=== PATIENT | male | born 1965 | race Caucasian/White ===

== ENCOUNTER 2020-03-19 04:21 | Inpatient (IN) | payer OTHER ==
[2020-03-15 14:13] VITALS: BMI 27.9
[~2020-03-19 04:21] MED LIST: VANCOMYCIN 1,000 MG VIAL (RESTRICTED TO ID ONLY) IVPB ONE; ceFAZolin SODIUM 1 GM VIAL IVPB ONE
[2020-03-19] MEDS ORDERED: LIDOCAINE HCL/PF 2% SDV 5ML VIAL ONE ×3 (12:41→16:17)
[2020-03-19] MEDS ORDERED: PROPOFOL 20 ML ONE ×21 (12:41→19:00)
[2020-03-19] MEDS ORDERED: SUCCINYLCHOLINE CHLORIDE 200 MG/10 ML SYRINGE ONE (12:41)
[2020-03-19] MEDS ORDERED: MIDAZOLAM HCL 2 MG/2 ML SINGLE DOSE VIAL ONE (12:42)
[2020-03-19] MEDS ORDERED: HEPARIN NA (PORCINE) 5,000 UNITS/ML 1ML VIAL ONE (12:52)
[2020-03-19] MEDS ORDERED: BUPIVACAINE HCL/PF 0.25% (2.5MG/ML) 10 ML VIAL ONE (13:35)
[2020-03-19] MEDS ORDERED: BUPIVACAINE LIPOSOME/PF (EXPAREL) 266 MG/20 ML VIAL ONE (13:35)
[2020-03-19] MEDS ORDERED: THROMBIN (BOVINE) 5,000 UNIT VIAL TP ONE ×2 (13:36→13:37)
[2020-03-19] MEDS ORDERED: ONDANSETRON 4 MG/2 ML VIAL ONE (14:11)
[2020-03-19] MEDS ORDERED: TRANEXAMIC ACID 1000 MG/10 ML VIAL ONE ×2 (14:11→16:14)
[2020-03-19] MEDS ORDERED: DEXAMETHASONE SOD PHOSPHATE 4 MG/1 ML VIAL ONE (14:11)
[2020-03-19] MEDS ORDERED: VANCOMYCIN 1,000 MG VIAL (RESTRICTED TO ID ONLY) ONE (14:13)
[2020-03-19] MEDS ORDERED: ceFAZolin SODIUM 1 GM VIAL ONE ×2 (14:13→16:04)
[2020-03-19] MEDS ORDERED: ceFAZolin SODIUM 1 GM VIAL IVPB ONE ×2 (14:45→18:00)
[2020-03-19] MEDS ORDERED: VANCOMYCIN 1,000 MG VIAL (RESTRICTED TO ID ONLY) IVPB ONE (15:00)
[2020-03-19] MEDS ORDERED: ROCURONIUM BROMIDE 50 MG/5 ML SYRINGE ONE ×2 (15:12→18:44)
[2020-03-19] MEDS ORDERED: HYDROmorphone HCl 2 MG/ML VIAL ONE (17:01)
--- NOTE | 2020-03-19 18:18 | PN ---
Progress Note (short form) - Note Progress Note: 54M s/p L3-S1 laminectomies, L3-L4 PLIF, L4-L5 PLIF, & L5-S1 PLIF, L3-S1 posterior instrumented spinal fusion POD #0. -Admit to ICU post-op. -Pain control: NO NSAID's; patient received intra-op paraspinal muscle block w/Exparel & marcaine; OK to use ICT SALES ASSISTANT if needed; transition to oral analgesia post-op. -DVT PPx: -Mechanical only: GARCIA's, SCD's. -Chemical: None. -Incentive spirometry q15 min. -NPO until flatus. -Lea care; d/c when ambulating. -Ancef post-op x 3 doses. -PT/OT/Rehab, OOB. -WBAT B/L LE. -No bending, lifting (>5 lbs), or twisting for 9-12 months. -Care per ICU & medical hospitalist teams. -Discharge planning: [facility] preferred if pt. needs rehab; f/u 7-10 days after rehab (or hospital) discharge at [facility] office; call for appointment; . -Will follow. Phil Hand MD (Orthopaedic Surgery).
--- NOTE | 2020-03-19 18:25 | OP ---
Operative Note - Note: Operative Date: 03/19/20 Pre-Operative Diagnosis: L3-L4, L4-L5, L5-S1 intervertebral disc disorders with associated radiculopathy. L3-S1 spinal stenosis with associated neurogenic claudication. L3-S1 axial instability with associated myofascial pain complex and lumbosacral enthesopathy. Operation: 1. L3 laminectomy & inferior facetectomy. 2. L4 laminectomy & superior and inferior facetectomies. 3. L5 laminectomy & superior and inferior facetectomies. 4. S1 laminectomy & superior facetectomy. 5. L3-L4 discectomy, PLIF, and posterolateral arthrodesis. 6. L4-L5 discectomy, PLIF, and posterolateral arthrodesis. 7. L5-S1 discectomy, PLIF, and posterolateral arthrodesis. 8. L3-S1 posterior instrumentation. 9. Bone autograft (morselized). 10. Bone allograft (morselized). 11. Complex wound closure. 12. Fluoroscopy Findings: Severe L3-S1 spinal stenosis Severe spondylosis L3-S1 Implants: Cages: RTI Tetrafuse Fortilink. L3-L4: 13mm. L4-L5: 14mm. L5-S1: 12mm. Screws: Precision Reform. L3-S1 bilaterally 6.5x40mm Post-Operative Diagnosis: Same as Pre-op Surgeon: Phil Hand Youth Accommodation Support Worker: Seamus Hand Anesthesiologist/TAXONOMY TEACHER: Daryl Zamorano Anesthesia: General, Local Specimens Removed: L3-L4, L4-L5, L5-S1 discs Estimated Blood Loss (mls): 1,000 Drains & Tubes with Location: 1 x superficial HemoVac Blood Volume Replaced (mls): 500 (Cell Saver) Fluid Volume Replaced (mls): 2,800 (Crystalloid) Operative Report Dictated: Yes
[2020-03-19] MEDS ORDERED: NEOSTIGMINE METHYLSULFATE 0.5 MG/1 ML - 10 ML MDV ONE ×2 (19:06→20:29)
[2020-03-19] MEDS ORDERED: ONDANSETRON 4 MG/2 ML VIAL IVPUSH PRN ×2 (20:22→21:14)
[2020-03-19] MEDS ORDERED: PHENYLEPHRINE HCL 10 MG/1 ML SINGLE DOSE VIAL ONE (20:29)
[2020-03-19] MEDS ORDERED: VASOPRESSIN 20 UNITS/ML VIAL IV ONE (20:30)
[2020-03-19] MEDS ORDERED: LACTATED RINGERS SOLUTION 1,000 ML IV SCH (20:30)
[2020-03-19] MEDS ORDERED: NALOXONE HCL 0.4 MG/ML VIAL ONE (20:54)
[2020-03-19 22:15] LABS: HEMATOCRIT 38.5 % (35.4-49); HEMOGLOBIN 13.1 GM/dL (11.7-16.9); MCH 31.8 pg (25.7-33.7); MCHC 33.9 g/dl (32.0-35.9); MEAN CELL VOLUME 93.9 fl (80-96); MEAN PLT VOLUME 7.9 fl (7.5-11.1); PLATELET COUNT 141 K/MM3 (134-434); RBC 4.11 M/mm3 (4.00-5.60); RDW 12.7 % (11.9-15.9); WHITE BLOOD COUNT 12.5 K/mm3 (4.0-10.0)
[2020-03-19 22:46] LABS: ALBUMIN 2.8 g/dl (3.4-5.0); BILIRUBIN,TOTAL 0.8 mg/dL (0.2-1); BLOOD UREA NITROGEN 15.5 mg/dL (7-18); CALCIUM 7.8 mg/dL (8.5-10.1); CREATININE 0.9 mg/dL (0.55-1.3); POTASSIUM 5.1 mmol/L (3.5-5.1)
[2020-03-19] MEDS ORDERED: ACETAMINOPHEN INJECTION 100 ML IVPB ONE (23:32)
[2020-03-19] MEDS: ACETAMINOPHEN 1000 MG/100 ML VIAL (NON FORMULARY) IVPB SCH (23:41)
[2020-03-20] MEDS ORDERED: HYDROmorphone HCl 2 MG/ML VIAL IVPB ONE (00:24)
[2020-03-20] MEDS ORDERED: HYDROmorphone HCl 2 MG/ML VIAL ONE (00:25)
[2020-03-20] MEDS: clonazePAM 2 MG TABLET PO SCH ×3 (00:45→22:01)
--- NOTE | 2020-03-20 00:51 | CONSULT ---
Consultation: REQUESTING PROVIDER: Dr. Hand CONSULT REQUEST: We have been asked to medically evaluate this patient for ICU admission HISTORY OF PRESENT ILLNESS: 54 yo male pmhx chronic lower back pain, carpal tunnel, gynecomastia, HSV-2, HLD, Ashtma, panic disorder, positional vertigo, pre diabetes, RBBB, current smokers with dyspnea on exertion. Patient presented to hospital for posterior lumbar interbody fusion by Dr. Hand. S/p L3-S1 laminectomies, L3-L4 PLIF, L4-L5 PLIF, & L5-S1 PLIF, L3-S1 posterior instrumented spinal fusion. REVIEW OF SYSTEMS: unable to assess at time patient is sedated CONSTITUTIONAL: Absent: fever, chills, diaphoresis, generalized weakness, malaise, loss of appetite, weight change HEENT: Absent: rhinorrhea, nasal congestion, throat pain, throat swelling, difficulty swallowing, mouth swelling, ear pain, eye pain, visual changes CARDIOVASCULAR: Absent: chest pain, syncope, palpitations, irregular heart rate, lightheadedness, peripheral edema RESPIRATORY: Absent: cough, shortness of breath, dyspnea with exertion, orthopnea, wheezing, stridor, hemoptysis GASTROINTESTINAL: Absent: abdominal pain, abdominal distension, nausea, vomiting, diarrhea, constipation, melena, hematochezia GENITOURINARY: Absent: dysuria, frequency, urgency, hesitancy, hematuria, flank pain, genital pain MUSCULOSKELETAL: Absent: myalgia, arthralgia, joint swelling, back pain, neck pain SKIN: Absent: rash, itching, pallor HEMATOLOGIC/IMMUNOLOGIC: Absent: easy bleeding, easy bruising, lymphadenopathy, frequent infections ENDOCRINE: Absent: unexplained weight gain, unexplained weight loss, heat intolerance, cold intolerance NEUROLOGIC: Absent: headache, focal weakness or paresthesias, dizziness, unsteady gait, seizure, mental status changes, bladder or bowel incontinence PSYCHIATRIC: Absent: anxiety, depression, suicidal or homicidal ideation, hallucinations. PHYSICAL EXAMINATION Vital Signs - 24 hr 03/19/20 03/19/20 03/19/20 09:54 21:25 21:40 Temperature 98.0 F 98.4 F Pulse Rate 54 L 68 68 Respiratory 16 10 16 Rate Blood Pressure 99/60 98/61 96/56 L O2 Sat by Pulse 98 100 100 Oximetry (%) 03/19/20 03/19/20 03/19/20 23:10 23:25 23:40 Temperature Pulse Rate 59 L 69 78 Respiratory 14 16 18 Rate Blood Pressure 101/67 142/91 138/81 O2 Sat by Pulse 100 100 100 Oximetry (%) GENERAL: sedated, on dilaudid in no acute distress. HEAD: Normal with no signs of trauma. EYES: PERRL ENT: Moist mucous membranes. NECK: supple, no JVD LUNGS: CTA BL, on BIPAP HEART: RRR, s1, s2 ABDOMEN: Soft, nontender, not distended EXTREMITIES: warm, well-perfused. No cyanosis. No clubbing. No peripheral edema. NEUROLOGICAL: Unable to fully assess SKIN: Warm, dry, no rashes or lesions noted. Laboratory Results - last 24 hr 03/19/20 03/19/20 03/19/20 09:14 20:52 22:07 WBC 12.5 H RBC 4.11 Hgb 13.1 Hct 38.5 MCV 93.9 MCH 31.8 MCHC 33.9 RDW 12.7 Plt Count 141 MPV 7.9 Sodium Potassium Chloride Carbon Dioxide Anion Gap BUN Creatinine Est GFR (CKD-EPI)AfAm Est GFR (CKD-EPI)NonAf POC Glucometer 112 Random Glucose Calcium Total Bilirubin AST ALT Alkaline Phosphatase Total Protein Albumin Blood Type O POSITIVE Antibody Screen Negative 03/19/20 22:07 WBC RBC Hgb Hct MCV MCH MCHC RDW Plt Count MPV Sodium 140 Potassium 5.1 Chloride 109 H Carbon Dioxide 26 Anion Gap 5 L BUN 15.5 Creatinine 0.9 Est GFR (CKD-EPI)AfAm 112.62 Est GFR (CKD-EPI)NonAf 97.17 POC Glucometer Random Glucose 130 H Calcium 7.8 L Total Bilirubin 0.8 AST 35 ALT 27 Alkaline Phosphatase 70 Total Protein 5.0 L Albumin 2.8 L Blood Type Antibody Screen Active Medications Generic Name Dose Route Start Last Admin Trade Name Freq PRN Reason Stop Dose Admin Acetaminophen 1,000 mg 03/20/20 02:00 03/19/20 23:41 Ofirmev Injection - IVPB 03/20/20 14:01 1,000 mg Q6H EDDY Administration Cefazolin Sodium/Dextrose 2 gm 03/20/20 00:30 Ancef 2 Gm Premixed Ivpb - IVPB 03/20/20 12:31 Q6H EDDY Clonazepam 2 mg 08/31/20 22:00 Klonopin - PO BID EDDY Fentanyl 50 mcg 03/19/20 21:14 Sublimaze Injection - IVPUSH [id number] PRN PAIN-PACU ORDER X 4 DOSES ONLY Lactated Ringer's 1,000 mls @ 125 mls/hr 03/19/20 20:30 Lactated Ringers Solution IV ASDIR EDDY Lactated Ringer's 1,000 mls @ 125 mls/hr 03/19/20 21:15 Lactated Ringers Solution IV ASDIR EDDY Ondansetron HCl 4 mg 03/19/20 20:22 Zofran Injection IVPUSH Q6H PRN NAUSEA AND/OR VOMITING Ondansetron HCl 4 mg 03/19/20 21:14 Zofran Injection IVPUSH Q6H PRN NAUSEA AND/OR VOMITING ASSESSMENT/PLAN: 54 yo male pmhx chronic lower back pain, carpal tunnel, gynecomastia, HSV-2, HLD, Ashtma, panic disorder, positional vertigo, pre diabetes, RBBB, current smokers with dyspnea on exertion. S/p L3-S1 laminectomies, L3-L4 PLIF, L4-L5 PLIF, & L5-S1 PLIF, L3-S1 posterior instrumented spinal fusion. Admitted to ICU for post op care. Neuro: - POD 0 Laminectomy - Pain control: NO NSAID's; patient received intra-op paraspinal muscle block w/Exparel & marcaine OK to use YOUTH DIRECTOR if needed; transition to oral analgesia post-op. - patient on 0.2 mg IV Dilaudid for pain now - continue to monitor with neuro checks Pulm: - current smoker - BIPAP at night post op - -Incentive spirometry q15 min Cardio: - cardiac monitoring Renal: - Lea care; d/c when ambulating. ID: - Ancef post-op x 3 doses. DVT PPx: - Mechanical only: GARCIA's, SCD's. FEN: - IVF - NPO until flatus PM&R - PT/OT/Rehab, OOB. - WBAT B/L LE. - No bending, lifting (>5 lbs), or twisting for 9-12 months. Dispo: Discharge planning: [facility] preferred if pt. needs rehab; f/u 7-10 days after rehab (or hospital) discharge at [facility] office; call for appointment; . Visit type - Emergency Visit Emergency Visit: Yes ED Registration Date: 03/19/20 Care time: The patient presented to the Emergency Department on the above date and was hospitalized for further evaluation of their emergent condition. - New Patient This patient is new to me today: Yes Date on this admission: 03/20/20 - Critical Care Critical Care patient: Yes Total Critical Care Time (in minutes): 35 Critical Care Statement: The care of this patient involved high complexity decision making to prevent further life threatening deterioration of the patient's condition and/or to evaluate & treat vital organ system(s) failure or risk of failure. ATTENDING PHYSICIAN STATEMENT I saw and evaluated the patient. I reviewed the resident's note and discussed the case with the resident. I agree with the resident's findings and plan as documented. SUBJECTIVE: OBJECTIVE: ASSESSMENT AND PLAN:
[2020-03-20] MEDS: ceFAZolin 2 GRAM PREMIX BAG IVPB SCH ×3 (01:30→14:24)
[2020-03-20] MEDS: LACTATED RINGERS SOLUTION 1,000 ML IV SCH ×2 (02:01→22:01)
[2020-03-20] MEDS: ACETAMINOPHEN 1000 MG/100 ML VIAL (NON FORMULARY) IVPB SCH ×3 (03:30→14:50)
--- NOTE | 2020-03-20 06:38 | OP ---
DATE OF OPERATION: DATE OF DICTATION: 03/19/2020 SURGEON: Phil Hand MD PRODUCTIVITY ENGINEER: Seamus Hand MD PREOPERATIVE DIAGNOSIS: Spinal stenosis L3, L4, L5 with associated segmental instability, kyphosis. POSTOPERATIVE DIAGNOSIS: Spinal stenosis L3, L4, L5 with associated segmental instability, kyphosis. OPERATION: 1. L3 bilateral laminectomies and facetectomies. (59541-35-19) 2. L4 bilateral laminectomies and facetectomies. () 3. L5 bilateral laminectomies and facetectomies. () 4. S1 bilateral laminectomies and facetectomies. () 5. L3-L4 posterior lumbar interbody fusion (PLIF) & posterior/lateral arthrodesis. (95995-50) 6. L4-L5 posterior lumbar interbody fusion (PLIF) & posterior/lateral arthrodesis. (58383-80) 7. L5-S1 posterior lumbar interbody fusion (PLIF) & posterior/lateral arthrodesis. (72283-67) 8. L3-L4 insertion biomechanical device/interbody cage. (57488) 9. L4-L5 insertion biomechanical device/interbody cage. (89624) 10. L5-S1 insertion biomechanical device/interbody cage. (22312) 11. L3-S1 bilateral posterior segmental instrumentation. (, technically challenging) 12. Deformity correction; cheondoism of lordosis. (89180) 13. Morselized bone autograft. (78337) 14. Morselized bone allograft. () 15. Bone marrow aspiration for bone grafting. (42496) 16. Complex wound closure, 4 layers, 25cm. (69055 x 4) 17. Fluoroscopy. (04354-58) ANTIBIOTICS GIVEN: Ancef 2 g, 1 g vancomycin preoperative; 1 g Ancef given intraoperatively; tranexamic acid used 1 g preoperative. BLOOD LOSS: Approximately 900 mL, 500 mL blood given back in Cell Saver. INDICATIONS: The patient well known to my practice, having undergone extensive surgery to cervical spine following a worker's compensation injury to the neck requiring extensive decompression, reconstruction. The axial force of the initial injury that affected his spine has resulted in significant disk degenerative changes in his lumbar spine at L3-L4, L4-L5, as well as L5-S1, with resultant severe spinal stenosis and progressive neurological weakness to lower extremities to a point of continual giving way and virtual inability to walk. All muscle groups in the lower extremities including the proximal muscles in grade 3 out of 4 as per assessed prior to this operation. This is progressive neurological deterioration, hence the need for this urgent surgical intervention. OPERATION DETAILS: In the prone position on the Jake table, an extra bolus was placed anterior to the chest to lift the chest to facilitate slight neck flexion. The assessed position on the [place] Jake table allowed too much extension of the neck and concerns about his adjacent level status in his cervical spine brought about the need for correction of this position. The lumbar spine was prepped and draped in the routine manner with Betadine scrub solution, wiped off with alcohol, DuraPrep applied. Neural monitoring was provided, and neural monitoring on the table revealed marked decrease in levels into his feet with virtually no motor-evoked potentials going through to his feet. Sensation appeared essentially pathways appeared to be reasonably well maintained. This fitted with his MRI, which showed the presence of severe stenosis at L3-L4, L4-L5, less so at L5-S1, but disk changes at L5-S1 brought about the decision to go ahead with an L3, L4, L5, S1 instrumented fusion with L3, L4, L5 interbody cages and appropriate bone graft. Midline incision was utilized. Dissection was taken through skin and subcutaneous tissue to the tips of the spinous processes. A dissection across the tips of the spinous processes enabled easy stripping of the spine. The spine was stripped to a point where the soft tissues which were very difficult to manage because of the thickness and hardness of tissues, muscle paralysis was utilized, and even with this the seating of retractors to gain access to the spine was difficult. Using laparoscopic imaging, the correct levels for dissection were noted. The muscles were stripped off the bone utilizing Garcia dissectors combined with Bovie, the hemostasis was achieved as best we could as we went along the case. The bleeding remained consistent throughout the procedure. The interspinous ligaments were resected using a Leksell rongeur. The position of L5-S1 was identified using a lateral fluoroscopic x-ray as well as anatomical guidelines. L5 was the last mobile segment readily seen both clinically and radiologically. Using a Jeanie retractor as well as Leksell rongeurs and Kerrison upcuts, the posterior laminae were resected completely from L3, that would be L3, L4 and L5. Osteotomes were utilized to transect longitudinally the pars interarticularis, the inferior facet joint. This gave easy access once this bone was removed to the superior facets both left and right side at L3, L4 and L5. The superior facets were then resected, freeing the cord completely, watching each nerve exit out of the foramina, each foramina was tested, found to be capacious and satisfactory. No dural injury occurred. Complete freeing of the cord from the inferior lamina of L2 right down to S1. The theca was retracted from left to right, and each disk at L3-L4, L4-L5, and L5-S1 was managed in the exact same way, that is each disk exposed the epidural veins. These were cauterized with bipolar Bovie. Each annulus was incised and excised with an elliptical annular resection. The shaving devices were utilized, and each disk was press-fitted into position, that means the shaver measured a number, e.g., 10, and a size 11 cage was inserted to expand the disk space and allow ligamentotaxis to hold the cage solidly in position. Each cage was inserted after each interbody space was packed with bone graft. This was bone graft from the posterior elements harvested, milled in a Midas Reynaldo mill and packed into each interbody space at L3-L4, L4-L5, and L5-S1. Once these were packed into position, each cage was filled with bone graft. These were Fortilink cages measuring at L3-L4 size 13, at L4-L5 size 12, and at L5-S1 size 14. The cages were well seated, verified on x-ray to be excellently seated, restoring the lordosis. At that point, the pedicles of L3, L4, L5, S1 were identified, each pedicle was drilled with a 4.5 drill. Each pedicle was palpated with a ball-tipped feeler. Each screw measured 45 x 6.5 and that is at L3, L4, L5; however, at S1, size 7.5 x 45 screws were utilized. The screws were tested. The right L5 screw was worrying, in that is measured size 6 mA. The rest were all virtually at 20 mA. My concern was screw breach of the pedicle. The theca was retracted off the pedicle and inspected medially as well as inferiorly as well as superiorly and found to be completely in the bone. We checked anterior-posterior as well as lateral x-rays on a number of occasions, and we were satisfied with the positioning clinically as well as radiologically, yet this spurious reading was noted, and we elected to leave the screw in, and we will perform a CAT scan and may be at risk of having to remove the screw surgically; this will depend on the postoperative findings. The rods which measured size 90 were contoured and fixed to the tulips of the screw heads with the appropriate caps. The rods were contoured into appropriate lordosis. Solid fixation achieved with a torque device, and solid stable fixation achieved. Intra-operative fluoroscopy in multiple planes confirmed excellent hardware position, and kyphotic deformity correction with cheondoism of lordosis. A Jamshidi needle was passed to the left posterior ilium, 60 mL of marrow were aspirated. This was spun down for the CD34 cells. This was mixed with biologic combination of allograft and fibrillar allograft material mixed with the stem cells and the patient's autologous bone and packed into intertransverse plane, both left- and right-hand side, thus completing a left and separate right posterolateral arthrodesis. The wounds were thoroughly lavaged. After trimming of the muscles, the closure was as follows: muscle 1 Vicryl, fascia 1 Vicryl, subcutaneous 1 and 2- 0 Vicryl in 2 layers, and skin 3-0 Monocryl with Steri-Strips, thus providing a 5- layer closure. Drainage, 1/8-inch Hemovac subcutaneously placed. OVERALL COMMENT: Operation was extremely difficult because of this man's muscular size and difficulty of access to the spine, but the decompression was complete and stabilization with cheondoism of lordosis and disk heights completed successfully. Patient will be nursed in the ICU. MD MAGY Sánchez/[id number] NICOLA
[2020-03-20 07:27] LABS: HEMATOCRIT 42.7 % (35.4-49); HEMOGLOBIN 14.4 GM/dL (11.7-16.9); MCH 32.4 pg (25.7-33.7); MCHC 33.7 g/dl (32.0-35.9); MEAN PLT VOLUME 8.6 fl (7.5-11.1); PLATELET COUNT 156 K/MM3 (134-434); RBC 4.45 M/mm3 (4.00-5.60); RDW 12.5 % (11.9-15.9)
[2020-03-20 07:28] LABS: BLOOD UREA NITROGEN 14.7 mg/dL (7-18); CALCIUM 7.8 mg/dL (8.5-10.1)
[2020-03-20] MEDS: MORPHINE SULFATE 2 MG/ML VIAL IVPUSH PRN (10:19)
--- NOTE | 2020-03-20 11:34 | PN ---
Physical Exam: SUBJECTIVE: Patient seen and examined. 54 yo male pmhx chronic lower back pain, carpal tunnel, gynecomastia, HSV-2, HLD, Ashtma, panic disorder, positional vertigo, pre diabetes, RBBB, current smokers with dyspnea on exertion. Patient presented to hospital for posterior lumbar interbody fusion by Dr. Hand. S/p L3-S1 laminectomies, L3-L4 PLIF, L4-L5 PLIF, & L5-S1 PLIF, L3-S1 posterior instrumented spinal fusion. Pt today just complaining of burning and pain where surgery is. Pt denies SOB, chest pain, fevers, chills. Pt has not passed gas or made bowel movement. Pt making good urine. Pt on 2L NC saturating at 100%. Pt able to turn side to side and has a good neurological exam and surgery cleared him to move to floors but BP was low so bolus and still low. Will cont monitoring until BP more stable. According to pt bp usually runs below 100 systolic. OBJECTIVE: GENERAL: Awake, alert, and fully oriented, in distress HEAD: No signs of trauma, normocephalic, atraumatic EYES: PERRLA, EOMI, sclera anicteric, conjunctiva clear ENT: Auricles normal inspection, hearing grossly normal, nares patent, oropharynx clear without exudates. Moist mucosa NECK: Restricted ROM in flexion, supple, no lymphadenopathy, JVD, or masses LUNGS: No distress, speaks full sentences, clear to auscultation bilaterally HEART: Regular rate and rhythm, normal S1 and S2, no murmurs, rubs or gallops, peripheral pulses normal and equal bilaterally. ABDOMEN: Soft, nontender, normoactive bowel sounds. No guarding, no rebound. No masses EXTREMITIES : Pt has decreased ROM of bilateral lower ext. Pt has dec ROM in rotation of lumbar back. Pt has full ROM of bilateral upper ext. Pt has 2+ pulses in bilateral lower ext. Pt has 2+ pulses in bilateral upper ext. NEUROLOGICAL: Cranial nerves II through XII grossly intact. Normal speech, Pt has decresed senses in bilateral lower ext. 4/5 Muscle strength SKIN: Bandaged lower back with no mass and no exsanguise blood Vital Signs Period Temp Pulse Resp BP Sys/Ayala Pulse Ox Last 24 Hr 97.0 F-100.0 F 59-95 9-22 90-142/49-91 100-100 Laboratory Results - last 24 hr 03/19/20 03/19/20 03/19/20 20:52 22:07 22:07 WBC 12.5 H RBC 4.11 Hgb 13.1 Hct 38.5 MCV 93.9 MCH 31.8 MCHC 33.9 RDW 12.7 Plt Count 141 MPV 7.9 Sodium 140 Potassium 5.1 Chloride 109 H Carbon Dioxide 26 Anion Gap 5 L BUN 15.5 Creatinine 0.9 Est GFR (CKD-EPI)AfAm 112.62 Est GFR (CKD-EPI)NonAf 97.17 POC Glucometer 112 Random Glucose 130 H Calcium 7.8 L Total Bilirubin 0.8 AST 35 ALT 27 Alkaline Phosphatase 70 Total Protein 5.0 L Albumin 2.8 L 03/20/20 03/20/20 06:25 06:25 WBC 16.0 H RBC 4.45 Hgb 14.4 Hct 42.7 MCV 96.0 MCH 32.4 MCHC 33.7 RDW 12.5 Plt Count 156 MPV 8.6 Sodium 138 Potassium 6.0 H Chloride 106 Carbon Dioxide 29 Anion Gap 3 L BUN 14.7 Creatinine 1.0 Est GFR (CKD-EPI)AfAm 99.15 Est GFR (CKD-EPI)NonAf 85.55 POC Glucometer Random Glucose 108 H Calcium 7.8 L Total Bilirubin AST ALT Alkaline Phosphatase Total Protein Albumin Active Medications Generic Name Dose Route Start Last Admin Trade Name Freq PRN Reason Stop Dose Admin Acetaminophen 1,000 mg 03/20/20 02:00 03/20/20 07:49 Ofirmev Injection - IVPB 03/20/20 14:01 1,000 mg Q6H EDDY Administration Cefazolin Sodium/Dextrose 2 gm 03/20/20 00:30 03/20/20 06:40 Ancef 2 Gm Premixed Ivpb - IVPB 03/20/20 12:31 2 gm Q6H EDDY Administration Clonazepam 2 mg 03/19/20 22:00 03/20/20 10:19 Klonopin - PO 2 mg BID EDDY Administration Fentanyl 50 mcg 03/19/20 21:14 03/19/20 23:40 Sublimaze Injection - IVPUSH 50 mcg [id number] PRN Administration PAIN-PACU ORDER X 4 DOSES ONLY Lactated Ringer's 1,000 mls @ 125 mls/hr 03/19/20 21:15 03/20/20 02:01 Lactated Ringers Solution IV 125 mls/hr ASDIR EDDY Administration Morphine Sulfate 2 mg 03/20/20 00:57 03/20/20 10:19 Morphine Sulfate IVPUSH 2 mg Q4H PRN Administration PAIN LEVEL 6-10 Ondansetron HCl 4 mg 03/19/20 21:14 Zofran Injection IVPUSH Q6H PRN NAUSEA AND/OR VOMITING ASSESSMENT/PLAN: 54 yo M presented to hospital for posterior lumbar interbody fusion by Dr. Hand. S/p L3-S1 laminectomies, L3-L4 PLIF, L4-L5 PLIF, & L5-S1 PLIF, L3-S1 posterior instrumented spinal fusion. Neuro - post op surgery - will continue pain medications prn - neuro checks Cardiac - Hypotension- will continue to monitor hypotension -pt was bolus fluid and bp has not improved - held morphine and fentanyl due to low bp Resp - Pt saturating at 100% without NC - pt incentive spirometer q15 min GI - Pt NPO due to not able to pass gas ID -ancef post op 3 doses FEN -IVF - Pt given lokalmine for high potassium PPX - DVT- SCDs Dispo: - Dr. Hand prefered one more night in ICU, but is okay with for med surge with ICU clearance. Pt bp was tenuous this afternoon so decided against med surge transfer. If BP holds transfer in PM or tomorrow. [facility] preferred if pt needs rehab: f/u 7-10 days after rehab ( or hospital) discharge at [facility] Office. Call for appointment [phone] Visit type - Emergency Visit Emergency Visit: No - New Patient This patient is new to me today: Yes Date on this admission: 03/20/20 - Critical Care Critical Care patient: Yes Total Critical Care Time (in minutes): 36 Critical Care Statement: The care of this patient involved high complexity decision making to prevent further life threatening deterioration of the patient's condition and/or to evaluate & treat vital organ system(s) failure or risk of failure. ATTENDING PHYSICIAN STATEMENT I saw and evaluated the patient. I reviewed the resident's note and discussed the case with the resident. I agree with the resident's findings and plan as documented. SUBJECTIVE: OBJECTIVE: ASSESSMENT AND PLAN:
[2020-03-20] MEDS ORDERED: LACTATED RINGERS SOLUTION 1000 ML INFUS.BAG IV ONE ×2 (12:06→14:04)
--- NOTE | 2020-03-20 12:14 | PN ---
Teaching Attending Note Name of Resident: Gilberto Jara ATTENDING PHYSICIAN STATEMENT I saw and evaluated the patient. I reviewed the resident's note and discussed the case with the resident. I agree with the resident's findings and plan as documented. SUBJECTIVE: Pt seen and examined in the ICU. Pain controlled. No flatus yet. No nausea/v omiting. No fevers. OBJECTIVE: Vital Signs Period Temp Pulse Resp BP Sys/Ayala Pulse Ox Last 24 Hr 97.0 F-100.0 F 59-95 9-22 90-142/49-91 100-100 Intake & Output 03/17/20 03/18/20 03/19/20 03/20/20 23:59 23:59 23:59 23:59 Intake Total 4000 Output Total 1650 400 Balance 2350 -400 Gen: NAD at rest Heart: RRR Lung: decreased breath sounds at the bases Abd: soft, nontender Ext: no edema Drain with sanguinous fluid CBC, BMP 03/20/20 06:25 03/20/20 06:25 Active Medications Acetaminophen (Ofirmev Injection -) 1,000 mg IVPB Q6H [facility] Stop: 03/20/20 14:01 Last Admin: 03/20/20 07:49 Dose: 1,000 mg Documented by: Cefazolin Sodium/Dextrose (Ancef 2 Gm Premixed Ivpb -) 2 gm IVPB Q6H [facility] Stop: 03/20/20 12:31 Last Admin: 03/20/20 06:40 Dose: 2 gm Documented by: Clonazepam (Klonopin -) 2 mg PO BID [facility] Last Admin: 03/20/20 10:19 Dose: 2 mg Documented by: Fentanyl (Sublimaze Injection -) 50 mcg IVPUSH [id number] PRN PRN Reason: PAIN-PACU ORDER X 4 DOSES ONLY Last Admin: 03/19/20 23:40 Dose: 50 mcg Documented by: Lactated Ringer's (Lactated Ringers Solution) 1,000 mls @ 125 mls/hr IV ASDIR [facility] Last Admin: 03/20/20 02:01 Dose: 125 mls/hr Documented by: Lactated Ringer's (Lactated Ringers Solution) 500 ml IV NOW ONE Stop: 03/20/20 12:07 Morphine Sulfate (Morphine Sulfate) 2 mg IVPUSH Q4H PRN PRN Reason: PAIN LEVEL 6-10 Last Admin: 03/20/20 10:19 Dose: 2 mg Documented by: Ondansetron HCl (Zofran Injection) 4 mg IVPUSH Q6H PRN PRN Reason: NAUSEA AND/OR VOMITING Sodium Zirconium Cyclosilicate (Lokelma) 10 gm PO DAILY [facility]DY ASSESSMENT AND PLAN: Lumbar Spinal Stenosis with Radiculopathy and Neurogenic Claudication s/p L3 laminectomy & inferior facetectomy/L4 laminectomy & superior and inferior facetectomies/L5 laminectomy & superior and inferior facetectomies/S1 laminectomy & superior facetectomy/L3-L4 discectomy, PLIF, and posterolateral arthrodesis/L4-L5 discectomy, PLIF, and posterolateral arthrodesis/L5-S1 discectomy, PLIF, and posterolateral arthrodesis/L3-S1 posterior instrumentation Asthma Hyperlipidemia - pain control - incentive spirometry - monitor lytes - activity/diet per surgery - DVT prophylaxis - can monitor on floor when ok with surgery
[2020-03-20] MEDS: SODIUM ZIRCONIUM CYCLOSILICATE (LOKELMA) 10 GM PACKET PO SCH (12:26)
--- NOTE | 2020-03-20 12:59 | PN ---
Progress Note (short form) - Note Progress Note: Anesthesiology post-op POD#1 s/p Lumbar PLIF under GA. Pt. is awake in bed, groggy but oriented. He states that he has pain but that he was trying not to take the pain meds. No nausea or other issues. VSS; BP slightly soft today. He is receiving a fluid bolus. 54 y.o. man with stable post-operative course after a delayed emergence in OR. Continue management as per primary team.
[2020-03-20] MEDS ORDERED: SODIUM CHLORIDE 0.9% 500 ML INFUS.BAG IV ONE (14:12)
[2020-03-20] MEDS ORDERED: KETOROLAC TROMETHAMINE 30 MG/1 ML VIAL IVPUSH PRN (17:54)
[2020-03-21] MEDS: MORPHINE SULFATE 2 MG/ML VIAL IVPUSH PRN ×3 (04:14→18:44)
[2020-03-21 07:02] LABS: BASO % 0.4 % (0-2.0); EOS % 0.1 % (0-4.5); HEMATOCRIT 34.6 % (35.4-49); HEMOGLOBIN 11.7 GM/dL (11.7-16.9); LYMPH % 9.3 % (8-40); MCH 32.2 pg (25.7-33.7); MCHC 33.8 g/dl (32.0-35.9); MEAN CELL VOLUME 95.1 fl (80-96); MEAN PLT VOLUME 8.4 fl (7.5-11.1); NEUT % 82.2 % (42.8-82.8); PLATELET COUNT 117 K/MM3 (134-434); RBC 3.64 M/mm3 (4.00-5.60); RDW 12.9 % (11.9-15.9); WHITE BLOOD COUNT 10.5 K/mm3 (4.0-10.0)
[2020-03-21 07:36] LABS: POTASSIUM 3.7 mmol/L (3.5-5.1)
[2020-03-21 07:43] LABS: ALBUMIN 2.8 g/dl (3.4-5.0); BILIRUBIN,TOTAL 0.8 mg/dL (0.2-1); BLOOD UREA NITROGEN 12.6 mg/dL (7-18); CALCIUM 7.7 mg/dL (8.5-10.1); CREATININE 0.8 mg/dL (0.55-1.3); MAGNESIUM 1.8 mg/dL (1.8-2.4); PHOSPHOROUS 1.9 mg/dL (2.5-4.9); TOT PROT 5.1 g/dl (6.4-8.2)
[2020-03-21] MEDS: clonazePAM 2 MG TABLET PO SCH ×2 (09:31→21:15)
[2020-03-21] MEDS: SODIUM ZIRCONIUM CYCLOSILICATE (LOKELMA) 10 GM PACKET PO SCH (09:31)
--- NOTE | 2020-03-21 10:28 | HOSP ---
Subjective - Review of Symptoms Subjective: ACCEPTANCE NOTE Pt reports back pain that improves with movement and medication. He is able to ambulate with assistance from PT. He denies radiating pain down legs, fever, ch ills, or nausea. Physical Examination Vital Signs: Vital Signs Temperature 99.2 F 03/21/20 06:00 Pulse Rate 98 H 03/21/20 08:00 Respiratory Rate 10 03/21/20 09:00 Blood Pressure 113/64 03/21/20 08:00 O2 Sat by Pulse Oximetry (%) 100 03/21/20 09:00 Constitutional: Yes: Calm Eyes: Yes: EOM Intact, PERRL HENT: Yes: Atraumatic, Normocephalic Neck: Yes: Trachea Midline Cardiovascular: Yes: Regular Rate and Rhythm. No: Murmur Respiratory: Yes: CTA Bilaterally Gastrointestinal: Yes: Normal Bowel Sounds Wound/Incision: Yes: Dressing Dry and Intact, Other (serosanguineous drainage from drain) Neurological: Yes: Alert, Oriented ...Motor Strength: LLE (moving extremities, sensation intact), RLE (moving extremities, sensation intact) Labs: CBC, BMP 03/21/20 06:15 03/21/20 06:15 Hospitalist Encounter Assessment: ACCEPTANCE NOTE Pt is a 54 y/o male with chronic lower back pain, carpal tunnel, gynecomastia, HSV-2, HLD, asthma, panic disorder, positional vertigo, pre diabetes, RBBB, and tobacco use disorder. Patient presented to hospital for posterior lumbar interbody fusion by Dr. Hand. S/p L3-S1 laminectomies, L3-L4 PLIF, L4-L5 PLIF, & L5-S1 PLIF, L3-S1 posterior instrumented spinal fusion. He is POD 2. His pressure is improved since yesterday, with the last 122/66. He is able to be transferred to med/surg for continued care. His diet will be advanced and will continue with pain management and encouraging PT. Visit type - Emergency Visit Emergency Visit: No - New Patient This patient is new to me today: Yes Date on this admission: 03/21/20 - Critical Care Critical Care patient: No
--- NOTE | 2020-03-21 12:20 | PN ---
Teaching Attending Note Name of Resident: Gilberto Jara ATTENDING PHYSICIAN STATEMENT I saw and evaluated the patient. I reviewed the resident's note and discussed the case with the resident. I agree with the resident's findings and plan as documented. SUBJECTIVE: Pt seen and examined in the ICU. Pain relatively controlled. +flatus. No betty sea/vomiting. No fevers. OBJECTIVE: Vital Signs Period Temp Pulse Resp BP Sys/Ayala Pulse Ox Last 24 Hr 98.7 F-100.1 F 79-108 10-19 87-121/49-83 96-100 Intake & Output 03/18/20 03/19/20 03/20/20 03/21/20 23:59 23:59 23:59 23:59 Intake Total 4000 2450 1600 Output Total 1650 2160 1350 Balance 2350 290 250 Gen: NAD at rest Heart: RRR Lung: decreased breath sounds at the bases Abd: soft, nontender Ext: no edema Drain with sanguinous fluid CBC, BMP 03/21/20 06:15 03/21/20 06:15 Active Medications Clonazepam (Klonopin -) 2 mg PO BID [facility] Last Admin: 03/21/20 09:31 Dose: 2 mg Documented by: Fentanyl (Sublimaze Injection -) 50 mcg IVPUSH [id number] PRN PRN Reason: PAIN-PACU ORDER X 4 DOSES ONLY Last Admin: 03/19/20 23:40 Dose: 50 mcg Documented by: Lactated Ringer's (Lactated Ringers Solution) 1,000 mls @ 125 mls/hr IV ASDIR [facility] Last Admin: 03/20/20 22:01 Dose: 125 mls/hr Documented by: Morphine Sulfate (Morphine Sulfate) 2 mg IVPUSH Q4H PRN PRN Reason: PAIN LEVEL 7-10 Last Admin: 03/21/20 10:02 Dose: 2 mg Documented by: Ondansetron HCl (Zofran Injection) 4 mg IVPUSH Q6H PRN PRN Reason: NAUSEA AND/OR VOMITING Sodium Zirconium Cyclosilicate (Lokelma) 10 gm PO DAILY [facility] Last Admin: 03/21/20 09:31 Dose: 10 gm Documented by: ASSESSMENT AND PLAN: Lumbar Spinal Stenosis with Radiculopathy and Neurogenic Claudication s/p L3 laminectomy & inferior facetectomy/L4 laminectomy & superior and inferior facetectomies/L5 laminectomy & superior and inferior facetectomies/S1 laminectomy & superior facetectomy/L3-L4 discectomy, PLIF, and posterolateral arthrodesis/L4-L5 discectomy, PLIF, and posterolateral arthrodesis/L5-S1 discectomy, PLIF, and posterolateral arthrodesis/L3-S1 posterior instrumentation Asthma Hyperlipidemia - pain control - incentive spirometry - monitor lytes - start clears - rehab/PT - DVT prophylaxis - can monitor on floor
[2020-03-21] MEDS ORDERED: ALBUTEROL SO4 HFA INHALER IH PRN (13:25)
--- NOTE | 2020-03-21 15:11 | PATH ---
Surgical Pathology Report Patient Name: PHIL DAS Med. Rec. #: [id number] /Age/Gender: 1965 (Age: 54) / M Account: [id number] Location: [facility] MED/SURG Taken: 03/19/2020 Received: 03/20/2020 Reported: 03/21/2020 Physicians: Phil Hand M.D. Specimen(s) Received A: RIGHT L4/L5 FACET B: L3-S1 DISC Clinical History Spinal stenosis Final Diagnosis A. L4/5 FACET, RIGHT, FACECTOMY, LAMINECTOMY, INTERBODY FUSION: FRAGMENTS OF BENIGN FIBROCARTILAGE, BONE, FIBROCONNECTIVE TISSUE, ADIPOSE TISSUE, AND SKELETAL MUSCLE. B. DISC, L3-S1, LAMINECTOMY, INTERBODY FUSION: BENIGN INTERVERTEBRAL DISC TISSUE AND BONE. Electronically Signed Justina Alvarez M.D. Gross Description A. Received in formalin labeled "right L4/L5 facet," is a 1.9 x 1.5 x 0.3 cm aggregate of bhatt brown fragments fibrocartilaginous tissue and bone. The specimen is entirely submitted in one cassette, following decalcification. B. Received in formalin labeled "L3-S1 disc," is a 4.5 x 4.0 x 0.7 cm aggregate of bhatt brown fragments of fibrocartilaginous tissue. A mill representative portion is submitted in one cassette. 03/20/2020 saudi03/20/2020
[2020-03-21] MEDS: DOCUSATE SODIUM 100 MG CAPSULE (FP) PO SCH (16:01)
[2020-03-21] MEDS: NAPH,MB-DB/K PH,MBDB POWDER PACKET PO SCH (16:03)
[2020-03-21] MEDS: POLYETHYLENE GLYCOL 3350 119 GM BTL PO SCH (16:03)
[2020-03-21] MEDS ORDERED: MORPHINE SULFATE 2 MG/ML VIAL IVPUSH PRN (19:25)
[2020-03-21] MEDS ORDERED: LACTATED RINGERS SOLUTION 1,000 ML IV SCH (19:25)
[2020-03-21] MEDS ORDERED: ONDANSETRON 4 MG/2 ML VIAL IVPUSH PRN (19:25)
--- NOTE | 2020-03-21 20:21 | PN ---
Progress Note (short form) - Note Progress Note: 54 yo male pmhx chronic lower back pain, carpal tunnel, gynecomastia, HSV-2, HLD, Ashtma, panic disorder, positional vertigo, pre diabetes, RBBB, current smokers with dyspnea on exertion. Patient presented to hospital for posterior lumbar interbody fusion by Dr. Hand. S/p L3-S1 laminectomies, L3-L4 PLIF, L4-L5 PLIF, & L5-S1 PLIF, L3-S1 posterior instrumented spinal fusion. Pt s/p day 2 from surgery only complaining of back pain passed gas over night but now bowel m ovements. Pt BP has stabilized over nigth through fluid. Pt is safe to d/c to Med surge. GENERAL: Awake, alert, and fully oriented, in distress HEAD: No signs of trauma, normocephalic, atraumatic EYES: PERRLA, EOMI, sclera anicteric, conjunctiva clear ENT: Auricles normal inspection, hearing grossly normal, nares patent, oropharynx clear without exudates. Moist mucosa NECK: Restricted ROM in flexion, supple, no lymphadenopathy, JVD, or masses LUNGS: No distress, speaks full sentences, clear to auscultation bilaterally HEART: Regular rate and rhythm, normal S1 and S2, no murmurs, rubs or gallops, peripheral pulses normal and equal bilaterally. ABDOMEN: Soft, nontender, normoactive bowel sounds. No guarding, no rebound. No masses EXTREMITIES : Pt has decreased ROM of bilateral lower ext. Pt has dec ROM in rotation of lumbar back. Pt has full ROM of bilateral upper ext. Pt has 2+ pulses in bilateral lower ext. Pt has 2+ pulses in bilateral upper ext. NEUROLOGICAL: Cranial nerves II through XII grossly intact. Normal speech, Pt has decresed senses in bilateral lower ext. 4/5 Muscle strength SKIN: Bandaged lower back with no mass and no exsanguise blood
[2020-03-21] MEDS: SENNOSIDES 8.6MG TABLET (FP) PO SCH (21:15)
[2020-03-21] MEDS ORDERED: ACETAMINOPHEN 325 MG TABLET (FP) PO ONE (22:03)
[2020-03-22] MEDS ORDERED: HYDROmorphone HCL CARPU-JECT 2 MG/1 ML DISP.SYRIN IVPUSH PRN (09:41)
[2020-03-22] MEDS: NAPH,MB-DB/K PH,MBDB POWDER PACKET PO SCH (09:57)
[2020-03-22] MEDS: DOCUSATE SODIUM 100 MG CAPSULE (FP) PO SCH (09:57)
[2020-03-22] MEDS: clonazePAM 2 MG TABLET PO SCH ×2 (09:57→22:31)
[2020-03-22] MEDS: POLYETHYLENE GLYCOL 3350 119 GM BTL PO SCH (09:58)
[2020-03-22] MEDS ORDERED: SODIUM ZIRCONIUM CYCLOSILICATE (LOKELMA) 5 GM PACKET PO SCH (10:00)
[2020-03-22] MEDS: HYDROmorphone HCl 2 MG/ML VIAL SQ PRN ×2 (11:11→17:34)
[2020-03-22] MEDS: ACETAMINOPHEN 500 MG TABLET (FP) PO SCH ×2 (12:04→19:03)
--- NOTE | 2020-03-22 14:02 | PN ---
Teaching Attending Note Name of Resident: Devorah Ramirez ATTENDING PHYSICIAN STATEMENT I saw and evaluated the patient. I reviewed the resident's note and discussed the case with the resident. I agree with the resident's findings and plan as documented. SUBJECTIVE: Patient seen and examined at bedside, s/p S/p L3-S1 laminectomies, tolerated procedure well, endorses LBP which is expected, VSS. OBJECTIVE: GA tired appearing, AAox3, mild distress HEENT NC/AT, EOMI, neck supple, dry MM Chest CTAB CVS s1, s2+, RRR Abd Soft, NT, ND, BS+ Ext 3/5 strength both legs, 5/5 strength UE b/l, sensation intact UE and LE Vital Signs (72 hours) 03/19/20 03/19/20 03/19/20 21:25 21:40 21:55 Temperature 98.4 F Pulse Rate 68 68 69 Respiratory 10 16 14 Rate Blood Pressure 98/61 96/56 L 90/56 L O2 Sat by Pulse 100 100 100 Oximetry (%) 03/19/20 03/19/20 03/19/20 22:10 22:22 22:25 Temperature Pulse Rate 69 68 Respiratory 14 11 16 Rate Blood Pressure 90/56 L 94/58 L O2 Sat by Pulse 100 100 Oximetry (%) 03/19/20 03/19/20 03/19/20 22:40 22:55 23:10 Temperature Pulse Rate 62 59 L 59 L Respiratory 14 14 14 Rate Blood Pressure 92/63 101/67 101/67 O2 Sat by Pulse 100 100 100 Oximetry (%) 03/19/20 03/19/20 03/19/20 23:25 23:40 23:55 Temperature Pulse Rate 69 78 76 Respiratory 16 18 14 Rate Blood Pressure 142/91 138/81 104/72 O2 Sat by Pulse 100 100 100 Oximetry (%) 03/20/20 03/20/20 03/20/20 00:10 00:22 00:25 Temperature 97.7 F Pulse Rate 84 93 H 77 Respiratory 14 22 H 10 Rate Blood Pressure 102/58 L 101/78 101/78 O2 Sat by Pulse 100 100 Oximetry (%) 03/20/20 03/20/20 03/20/20 01:12 02:00 04:00 Temperature 97.9 F Pulse Rate 95 H 85 67 Respiratory 9 L 10 Rate Blood Pressure 93/59 L 97/56 L O2 Sat by Pulse 100 100 100 Oximetry (%) 03/20/20 03/20/20 03/20/20 06:00 10:00 12:00 Temperature 97.0 F L 100.0 F H Pulse Rate 70 75 79 Respiratory 10 11 9 L Rate Blood Pressure 100/63 90/49 L 89/67 L O2 Sat by Pulse 100 100 100 Oximetry (%) 03/20/20 03/20/20 03/20/20 14:00 16:00 18:00 Temperature 100.1 F H 98.9 F 99.1 F Pulse Rate 90 87 79 Respiratory 19 18 14 Rate Blood Pressure 93/55 L 87/49 L 92/51 L O2 Sat by Pulse 100 Oximetry (%) 03/20/20 03/20/20 03/20/20 20:00 20:32 21:00 Temperature Pulse Rate 88 Respiratory 15 Rate Blood Pressure 89/50 L O2 Sat by Pulse 100 100 100 Oximetry (%) 03/20/20 03/21/20 03/21/20 22:00 00:13 02:00 Temperature 99.2 F 99.9 F H 99.6 F Pulse Rate 97 H 94 H 99 H Respiratory 15 15 17 Rate Blood Pressure 101/49 L 103/58 L 108/63 O2 Sat by Pulse 100 100 100 Oximetry (%) 03/21/20 03/21/20 03/21/20 04:00 04:16 06:00 Temperature 99.2 F Pulse Rate 99 H 108 H 98 H Respiratory 15 16 Rate Blood Pressure 110/83 102/58 L O2 Sat by Pulse 96 100 97 Oximetry (%) 03/21/20 03/21/20 03/21/20 08:00 09:00 10:00 Temperature 98.7 F Pulse Rate 98 H 97 H Respiratory 10 10 19 Rate Blood Pressure 113/64 121/66 O2 Sat by Pulse 100 100 98 Oximetry (%) 03/21/20 03/21/20 03/21/20 12:00 19:31 19:42 Temperature 99.3 F 99.2 F Pulse Rate 90 105 H 99 H Respiratory 18 20 20 Rate Blood Pressure 106/60 125/59 L 138/73 O2 Sat by Pulse 97 98 Oximetry (%) 03/21/20 03/22/20 03/22/20 20:23 02:00 07:00 Temperature 99 F 98.3 F Pulse Rate 100 H 98 H Respiratory 20 20 20 Rate Blood Pressure 122/82 126/76 O2 Sat by Pulse 98 98 97 Oximetry (%) 03/22/20 10:00 Temperature 99.1 F Pulse Rate 96 H Respiratory 18 Rate Blood Pressure 135/72 O2 Sat by Pulse 98 Oximetry (%) Laboratory Results - last 24 hr 03/21/20 03/21/20 06:15 14:22 Sodium 143 Potassium 3.7 Chloride 108 H Carbon Dioxide 27 Anion Gap 7 L BUN 12.6 Creatinine 0.8 Est GFR (CKD-EPI)AfAm 118.20 Est GFR (CKD-EPI)NonAf 101.99 Random Glucose 73 L Hemoglobin A1c % 4.8 Calcium 7.7 L Phosphorus 1.9 L Magnesium 1.8 Total Bilirubin 0.8 AST 96 H ALT 33 Alkaline Phosphatase 61 Total Protein 5.1 L Albumin 2.8 L Triglycerides 113 Cholesterol 108 Total LDL Cholesterol 57 HDL Cholesterol 33 L TSH 0.37 Home Medications Medication Instructions Recorded Oxycodone HCl/Acetaminophen 1 tab PO Q4H PRN 03/15/20 [Percocet 5-325 mg Tablet] clonazePAM [Klonopin -] 2 mg PO BID 03/15/20 Current Medications Generic Name Dose Route Start Last Admin Trade Name Freq PRN Reason Stop Dose Admin Acetaminophen 1,000 mg 03/22/20 09:45 03/22/20 12:04 Tylenol - PO 1,000 mg Q8H EDDY Administration Albuterol Sulfate 2 puff 03/21/20 13:25 Ventolin Hfa Inhaler - IH Q4H PRN SHORT OF BREATH/WHEEZING Clonazepam 2 mg 03/21/20 22:00 03/22/20 09:57 Klonopin - PO 2 mg BID EDDY Administration Docusate Sodium 100 mg 03/21/20 14:30 03/22/20 09:57 Colace - PO 100 mg DAILY [facility]DY Administration Hydromorphone HCl 2 mg 03/22/20 09:47 03/22/20 11:11 Dilaudid Vial - SQ 2 mg Q6H PRN Administration PAIN LEVEL 6-10 Lactated Ringer's 1,000 mls @ 125 mls/hr 03/21/20 19:25 03/21/20 21:16 Lactated Ringers Solution IV 125 mls/hr ASDIR [facility] Administration Polyethylene Glycol 17 gm 03/21/20 14:30 03/22/20 09:58 Miralax (For Daily Use) - PO Not Given DAILY [facility]DY Potassium Phos/Sodium Phos 2 packet 03/21/20 13:30 03/22/20 09:57 Phos-Nak Packet - PO 2 packet DAILY [facility] Administration Senna 1 tab 03/21/20 22:00 03/21/20 21:15 Senna - PO 1 tab HS [facility]DY Administration ASSESSMENT AND PLAN: 54 M Severe L spine radiculopathy following work-related accident 2012 s/p S/p L3-S1 laminectomies POD#0 C spine radiculopathy Anxiety Panic disorder Active smoker Plan: Duonebs PRN for SOB, NRT with patch Cont. Klonopin, avoid oversedation w/ opioids utilize IV Tylenol PRN Obtain basic labs/EKG/CXR Replace electrolytes PRN Rest of management per Surgery team DVT PPx: per Surgery team
--- NOTE | 2020-03-22 14:05 | PN ---
Physical Exam: SUBJECTIVE: Patient seen and examined at the bedside. OBJECTIVE: Patient is a 54 year old male with a significant past medical history of chronic lower back pain, carpal tunnel, gynecomastia, HSV-2, HLD, Ashtma, panic disorder, positional vertigo, pre diabetes, RBBB, smokers. Patient presented to hospital for posterior lumbar interbody fusion by Dr. Hand and is S/p L3-S1 laminectomies, L3-L4 PLIF, L4-L5 PLIF, & L5-S1 PLIF, L3-S1 posterior instrumented spinal fusion on 03/19/2020 Vital Signs Period Temp Pulse Resp BP Sys/Ayala Pulse Ox Last 24 Hr 98.3 F-99.3 F 96-105 18-20 122-138/59-82 97-98 GENERAL: The patient is awake, alert, and fully oriented, in no acute distress. HEAD: Normal with no signs of trauma. EYES: PERRL, extraocular movements intact, sclera anicteric, conjunctiva clear. No ptosis. ENT: Ears normal, nares patent, oropharynx clear without exudates, moist mucous membranes. NECK: Trachea midline, full range of motion, supple. LUNGS: Breath sounds equal, clear to auscultation bilaterally, no wheezes HEART: Regular rate and rhythm ABDOMEN: Soft, nontender, nondistended, normoactive bowel sounds EXTREMITIES: mild edema on left arm where iv site was, now with mild edema on right arm. will stop ivf NEUROLOGICAL: Normal speech, gait not observed. PSYCH: Normal mood, normal affect. SKIN: back dressing Laboratory Results - last 24 hr 03/21/20 03/21/20 06:15 14:22 Sodium 143 Potassium 3.7 Chloride 108 H Carbon Dioxide 27 Anion Gap 7 L BUN 12.6 Creatinine 0.8 Est GFR (CKD-EPI)AfAm 118.20 Est GFR (CKD-EPI)NonAf 101.99 Random Glucose 73 L Hemoglobin A1c % 4.8 Calcium 7.7 L Phosphorus 1.9 L Magnesium 1.8 Total Bilirubin 0.8 AST 96 H ALT 33 Alkaline Phosphatase 61 Total Protein 5.1 L Albumin 2.8 L Triglycerides 113 Cholesterol 108 Total LDL Cholesterol 57 HDL Cholesterol 33 L TSH 0.37 Active Medications Generic Name Dose Route Start Last Admin Trade Name Freq PRN Reason Stop Dose Admin Acetaminophen 1,000 mg 03/22/20 09:45 03/22/20 12:04 Tylenol - PO 1,000 mg Q8H [facility] Administration Albuterol Sulfate 2 puff 03/21/20 13:25 Ventolin Hfa Inhaler - IH Q4H PRN SHORT OF BREATH/WHEEZING Clonazepam 2 mg 03/21/20 22:00 03/22/20 09:57 Klonopin - PO 2 mg BID EDDY Administration Docusate Sodium 100 mg 03/21/20 14:30 03/22/20 09:57 Colace - PO 100 mg DAILY EDDY Administration Hydromorphone HCl 2 mg 03/22/20 09:47 03/22/20 11:11 Dilaudid Vial - SQ 2 mg Q6H PRN Administration PAIN LEVEL 6-10 Lactated Ringer's 1,000 mls @ 125 mls/hr 03/21/20 19:25 03/21/20 21:16 Lactated Ringers Solution IV 125 mls/hr ASDIR [facility] Administration Polyethylene Glycol 17 gm 03/21/20 14:30 03/22/20 09:58 Miralax (For Daily Use) - PO Not Given DAILY EDDY Potassium Phos/Sodium Phos 2 packet 03/21/20 13:30 03/22/20 09:57 Phos-Nak Packet - PO 2 packet DAILY [facility] Administration Senna 1 tab 03/21/20 22:00 03/21/20 21:15 Senna - PO 1 tab HS [facility]DY Administration ASSESSMENT/PLAN: Problem List - Problems (1) Status post spinal surgery Assessment/Plan: manage pain with dilaudid IV and transition to PO bowel regimen incentive spirometer back dressing changes per surgery monitor labs, vital signs Code(s): Z98.890 - OTHER SPECIFIED POSTPROCEDURAL STATES (2) DVT prophylaxis Assessment/Plan: SCDs Code(s): Z29.9 - ENCOUNTER FOR PROPHYLACTIC MEASURES, UNSPECIFIED Visit type - Emergency Visit Emergency Visit: Yes ED Registration Date: 03/19/20 Care time: The patient presented to the Emergency Department on the above date and was hospitalized for further evaluation of their emergent condition. - New Patient This patient is new to me today: Yes Date on this admission: 03/22/20 - Critical Care Critical Care patient: No - Discharge Referral Referred to [facility] Med P.C.: No
[2020-03-22 16:30] LABS: BASO % 0.4 % (0-2.0); EOS % 0.6 % (0-4.5); HEMATOCRIT 34.2 % (35.4-49); HEMOGLOBIN 11.7 GM/dL (11.7-16.9); LYMPH % 12.8 % (8-40); MCH 32.4 pg (25.7-33.7); MCHC 34.2 g/dl (32.0-35.9); MEAN CELL VOLUME 94.9 fl (80-96); MEAN PLT VOLUME 8.4 fl (7.5-11.1); MONO % 6.8 % (3.8-10.2); NEUT % 79.4 % (42.8-82.8); PLATELET COUNT 147 K/MM3 (134-434); RBC 3.61 M/mm3 (4.00-5.60); RDW 12.6 % (11.9-15.9); WHITE BLOOD COUNT 8.4 K/mm3 (4.0-10.0)
[2020-03-22 16:55] LABS: ALBUMIN 3.1 g/dl (3.4-5.0); BLOOD UREA NITROGEN 8.3 mg/dL (7-18); CALCIUM 8.5 mg/dL (8.5-10.1); CREATININE 0.7 mg/dL (0.55-1.3); MAGNESIUM 1.9 mg/dL (1.8-2.4); PHOSPHOROUS 2.2 mg/dL (2.5-4.9); POTASSIUM 3.6 mmol/L (3.5-5.1); TOT PROT 6.2 g/dl (6.4-8.2)
[2020-03-22] MEDS: SENNOSIDES 8.6MG TABLET (FP) PO SCH (22:31)
[2020-03-23] MEDS: ACETAMINOPHEN 500 MG TABLET (FP) PO SCH ×2 (02:16→10:01)
[2020-03-23] MEDS: HYDROmorphone HCl 2 MG/ML VIAL SQ PRN ×2 (05:44→13:10)
[2020-03-23 08:05] LABS: BASO % 0.6 % (0-2.0); EOS % 2.4 % (0-4.5); HEMATOCRIT 31.8 % (35.4-49); HEMOGLOBIN 10.9 GM/dL (11.7-16.9); LYMPH % 14.6 % (8-40); MCH 32.1 pg (25.7-33.7); MCHC 34.2 g/dl (32.0-35.9); MEAN CELL VOLUME 93.8 fl (80-96); MEAN PLT VOLUME 8.7 fl (7.5-11.1); MONO % 8.4 % (3.8-10.2); PLATELET COUNT 150 K/MM3 (134-434); RBC 3.39 M/mm3 (4.00-5.60); RDW 12.8 % (11.9-15.9); WHITE BLOOD COUNT 6.2 K/mm3 (4.0-10.0)
[2020-03-23 08:20] LABS: BLOOD UREA NITROGEN 11.1 mg/dL (7-18); CALCIUM 7.9 mg/dL (8.5-10.1); CREATININE 0.7 mg/dL (0.55-1.3); MAGNESIUM 1.8 mg/dL (1.8-2.4); POTASSIUM 3.4 mmol/L (3.5-5.1); TOT PROT 5.8 g/dl (6.4-8.2)
[2020-03-23] MEDS ORDERED: POTASSIUM CHLORIDE TABS 20 MEQ TABLET.ER (FP) PO ONE (08:21)
[2020-03-23] MEDS: DOCUSATE SODIUM 100 MG CAPSULE (FP) PO SCH ×2 (10:03→10:08)
[2020-03-23] MEDS: NAPH,MB-DB/K PH,MBDB POWDER PACKET PO SCH (10:03)
[2020-03-23] MEDS: clonazePAM 2 MG TABLET PO SCH (10:03)
[2020-03-23] MEDS: POLYETHYLENE GLYCOL 3350 119 GM BTL PO SCH (10:04)
[2020-03-23 13:55] VITALS: BP 127/87; PULSE 92; TEMP 98.1
--- NOTE | 2020-03-23 13:56 | PN ---
Physical Exam: SUBJECTIVE: Patient seen and examined, having alot of back pain today. denies any chest pain. OBJECTIVE: Patient is a 54 year old male with a significant past medical history of chronic lower back pain, carpal tunnel, gynecomastia, HSV-2, HLD, Ashtma, panic disorder, positional vertigo, pre diabetes, RBBB, smokers. Patient presented to hospital for posterior lumbar interbody fusion by Dr. Hand and is S/p L3-S1 laminectomies, L3-L4 PLIF, L4-L5 PLIF, & L5-S1 PLIF, L3-S1 posterior instrumented spinal fusion on 03/19/2020 Vital Signs Period Temp Pulse Resp BP Sys/Ayala Pulse Ox Last 24 Hr 98.1 F-99.6 F 84-97 18-20 108-140/68-95 93-99 GENERAL: The patient is awake, alert, and fully oriented, in no acute distress. HEAD: Normal with no signs of trauma. EYES: PERRL, extraocular movements intact, sclera anicteric, conjunctiva clear. No ptosis. ENT: Ears normal, nares patent, oropharynx clear without exudates, moist mucous membranes. NECK: Trachea midline, full range of motion, supple. LUNGS: Breath sounds equal, clear to auscultation bilaterally, no wheezes HEART: Regular rate and rhythm ABDOMEN: Soft, nontender, nondistended, normoactive bowel sounds EXTREMITIES: mild edema on left arm where iv site was, now with mild edema on right arm. will stop ivf NEUROLOGICAL: Normal speech, gait not observed. PSYCH: Normal mood, normal affect. SKIN: back dressing intact, sero sang drainage, drain intact with sero sang drainage. to be removed by surgery prior to d/c home. Laboratory Results - last 24 hr 03/22/20 03/22/20 03/23/20 15:30 15:30 06:35 WBC 8.4 6.2 RBC 3.61 L 3.39 L Hgb 11.7 10.9 L Hct 34.2 L 31.8 L MCV 94.9 93.8 MCH 32.4 32.1 MCHC 34.2 34.2 RDW 12.6 12.8 Plt Count 147 D 150 MPV 8.4 8.7 Absolute Neuts (auto) 6.7 4.6 Neutrophils % 79.4 74.0 Lymphocytes % 12.8 D 14.6 Monocytes % 6.8 8.4 Eosinophils % 0.6 D 2.4 D Basophils % 0.4 0.6 Nucleated RBC % 0 0 Sodium 139 Potassium 3.6 Chloride 102 Carbon Dioxide 31 Anion Gap 6 L BUN 8.3 Creatinine 0.7 Est GFR (CKD-EPI)AfAm 124.87 Est GFR (CKD-EPI)NonAf 107.74 Random Glucose 110 H Calcium 8.5 Phosphorus 2.2 L Magnesium 1.9 Total Bilirubin 1.0 AST 100 H ALT 41 Alkaline Phosphatase 67 Total Protein 6.2 L Albumin 3.1 L 03/23/20 06:35 WBC RBC Hgb Hct MCV MCH MCHC RDW Plt Count MPV Absolute Neuts (auto) Neutrophils % Lymphocytes % Monocytes % Eosinophils % Basophils % Nucleated RBC % Sodium 139 Potassium 3.4 L Chloride 104 Carbon Dioxide 28 Anion Gap 7 L BUN 11.1 Creatinine 0.7 Est GFR (CKD-EPI)AfAm 124.87 Est GFR (CKD-EPI)NonAf 107.74 Random Glucose 84 Calcium 7.9 L Phosphorus Magnesium 1.8 Total Bilirubin 1.0 AST 78 H ALT 40 Alkaline Phosphatase 58 Total Protein 5.8 L Albumin 3.0 L Active Medications Generic Name Dose Route Start Last Admin Trade Name Freq PRN Reason Stop Dose Admin Acetaminophen 1,000 mg 03/22/20 09:45 03/23/20 10:01 Tylenol - PO 1,000 mg Q8H EDDY Administration Albuterol Sulfate 2 puff 03/21/20 13:25 Ventolin Hfa Inhaler - IH Q4H PRN SHORT OF BREATH/WHEEZING Clonazepam 2 mg 03/21/20 22:00 03/23/20 10:03 Klonopin - PO 2 mg BID EDDY Administration Docusate Sodium 100 mg 03/21/20 14:30 03/23/20 10:08 Colace - PO Not Given DAILY EDDY Hydromorphone HCl 2 mg 03/22/20 09:47 03/23/20 13:10 Dilaudid Vial - SQ 2 mg Q6H PRN Administration PAIN LEVEL 6-10 Polyethylene Glycol 17 gm 03/21/20 14:30 03/23/20 10:04 Miralax (For Daily Use) - PO Not Given DAILY EDDY Potassium Phos/Sodium Phos 2 packet 03/21/20 13:30 03/23/20 10:03 Phos-Nak Packet - PO 2 packet DAILY EDDY Administration Senna 1 tab 03/21/20 22:00 03/22/20 22:31 Senna - PO Not Given HS EDDY ASSESSMENT/PLAN: Problem List - Problems (1) Status post spinal surgery Assessment/Plan: manage pain with dilaudid IV and transition to PO bowel regimen incentive spirometer drain intact and to be removed by surgery prior to d/c home back dressing changes per surgery monitor labs, vital signs Code(s): Z98.890 - OTHER SPECIFIED POSTPROCEDURAL STATES (2) DVT prophylaxis Assessment/Plan: SCDs, ambulation bowel regimen Code(s): Z29.9 - ENCOUNTER FOR PROPHYLACTIC MEASURES, UNSPECIFIED Visit type - Emergency Visit Emergency Visit: Yes ED Registration Date: 03/19/20 Care time: The patient presented to the Emergency Department on the above date and was hospitalized for further evaluation of their emergent condition. - New Patient This patient is new to me today: No - Critical Care Critical Care patient: No - Discharge Referral Referred to [facility] Med P.C.: No
--- NOTE | 2020-03-23 16:08 | DS ---
Physical Exam: SUBJECTIVE: Patient seen and examined wants to go home today. OBJECTIVE: ISTOP PERFORMED: patient received 70 pills of clonazepam on 03/22/2020 patient reports having Endocet at home and last filled 02/21/2020 - 70 pills ordered 03/16/2020 03/22/2020 clonazepam 2 mg odt 60 30 Chepe Narayan MD Insurance [facility] 02/10/2020 02/21/2020 endocet 10-325 mg tablet 70 18 Phil Hand MS, MD Insurance [facility] 02/17/2020 02/21/2020 clonazepam 2 mg odt 60 30 Chepe Narayan MD Insurance [facility] 01/13/2020 01/23/2020 endocet 10-325 mg tablet 90 30 Phil Hand MS, MD [facility] 01/19/2020 01/20/2020 clonazepam 2 mg odt 60 30 Chepe Narayan MD Insurance [facility] 12/22/2019 12/23/2019 clonazepam 2 mg odt 60 30 Chepe Narayan MD Insurance [facility] Vital Signs Period Temp Pulse Resp BP Sys/Ayala Pulse Ox Last 24 Hr 98.1 F-99.6 F 84-95 20-20 108-140/70-95 93-99 PHYSICAL EXAM GENERAL: The patient is awake, alert, and fully oriented, in no acute distress. HEAD: Normal with no signs of trauma. EYES: PERRL, extraocular movements intact, sclera anicteric, conjunctiva clear. No ptosis. ENT: Ears normal, nares patent, oropharynx clear without exudates, moist mucous membranes. NECK: Trachea midline, full range of motion, supple. LUNGS: Breath sounds equal, clear to auscultation bilaterally, no wheezes HEART: Regular rate and rhythm ABDOMEN: Soft, nontender, nondistended, normoactive bowel sounds EXTREMITIES: mild edema on left arm where iv site was, now with mild edema on right arm. will stop ivf NEUROLOGICAL: Normal speech, gait not observed. PSYCH: Normal mood, normal affect. SKIN: back dressing intact, sero sang drainage, drain intact with sero sang drainage. to be removed by surgery prior to d/c home. LABS Laboratory Results - last 24 hr 03/22/20 03/22/20 03/23/20 15:30 15:30 06:35 WBC 8.4 6.2 RBC 3.61 L 3.39 L Hgb 11.7 10.9 L Hct 34.2 L 31.8 L MCV 94.9 93.8 MCH 32.4 32.1 MCHC 34.2 34.2 RDW 12.6 12.8 Plt Count 147 D 150 MPV 8.4 8.7 Absolute Neuts (auto) 6.7 4.6 Neutrophils % 79.4 74.0 Lymphocytes % 12.8 D 14.6 Monocytes % 6.8 8.4 Eosinophils % 0.6 D 2.4 D Basophils % 0.4 0.6 Nucleated RBC % 0 0 Sodium 139 Potassium 3.6 Chloride 102 Carbon Dioxide 31 Anion Gap 6 L BUN 8.3 Creatinine 0.7 Est GFR (CKD-EPI)AfAm 124.87 Est GFR (CKD-EPI)NonAf 107.74 Random Glucose 110 H Calcium 8.5 Phosphorus 2.2 L Magnesium 1.9 Total Bilirubin 1.0 AST 100 H ALT 41 Alkaline Phosphatase 67 Total Protein 6.2 L Albumin 3.1 L 03/23/20 06:35 WBC RBC Hgb Hct MCV MCH MCHC RDW Plt Count MPV Absolute Neuts (auto) Neutrophils % Lymphocytes % Monocytes % Eosinophils % Basophils % Nucleated RBC % Sodium 139 Potassium 3.4 L Chloride 104 Carbon Dioxide 28 Anion Gap 7 L BUN 11.1 Creatinine 0.7 Est GFR (CKD-EPI)AfAm 124.87 Est GFR (CKD-EPI)NonAf 107.74 Random Glucose 84 Calcium 7.9 L Phosphorus Magnesium 1.8 Total Bilirubin 1.0 AST 78 H ALT 40 Alkaline Phosphatase 58 Total Protein 5.8 L Albumin 3.0 L HOSPITAL COURSE: Date of Admission:03/19/20 Date of Discharge: 03/23/2003/22/2020 clonazepam 2 mg odt 60 30 Chepe Narayan MD Insurance [facility] 02/10/2020 02/21/2020 endocet 10-325 mg tablet 70 18 Phil Hand MS, MD Insurance [facility] 02/17/2020 02/21/2020 clonazepam 2 mg odt 60 30 Chepe Narayan MD Insurance [facility] 01/13/2020 01/23/2020 endocet 10-325 mg tablet 90 30 Phil Hand MS, MD Insurance [facility] Minutes to complete discharge: 40 Discharge Summary Problems reviewed: Yes Reason For Visit: SPINAL STENOSIS, LUMBAR REGION Current Active Problems DVT prophylaxis (Acute) Status post spinal surgery (Acute) Condition: Good - Instructions Diet, Activity, Other Instructions: Please follow up with Dr. Hand. Mobilize as tolerated continue the Endocet you have at home as needed every 4-6 hours continue Clonazepam 2 mg TWICE per day Please see Dr. Hand in the office next . Thank you for allowing us to care for you Referrals: Phil Hand MD [Staff Physician] - Disposition: HOME - Home Medications Comprehensive Discharge Medication List: Ambulatory Orders Oxycodone HCl/Acetaminophen [Percocet 5-325 mg Tablet] 1 tab PO Q4H PRN 03/15/20 clonazePAM [Klonopin -] 2 mg PO BID 03/15/20 Prescription Drug Monitoring Program (I-STOP) results: I-STOP reviewed and issues identified (pt has endocet and clonazepam ordered previously.) Problem List - Problems (1) Status post spinal surgery Code(s): Z98.890 - OTHER SPECIFIED POSTPROCEDURAL STATES (2) DVT prophylaxis Code(s): Z29.9 - ENCOUNTER FOR PROPHYLACTIC MEASURES, UNSPECIFIED This patient is new to me today: No Emergency Visit: Yes ED Registration Date: 03/19/20 Care time: The patient presented to the Emergency Department on the above date and was hospitalized for further evaluation of their emergent condition. Critical Care patient: No - Discharge Referral Referred to [facility] Med P.C.: No
--- NOTE | 2020-03-23 16:08 | PN ---
Progress Note (short form) - Note Progress Note: POD#4 Walking independently Post op incisional pain better No leg pain Vitals and medical status as per chart Apyrexial Eating PASSING STOOL Wound Drain removed by myself Dressing intact Will remove in office next . Assessment post lumbar spine PLIF fusion L3 to S1 Doing well PLAN D/C home Pain mx Mobilize FWBAT Minimal sitting See in the office next
== END 2020-03-23 16:55 | disposition home or self-care (01) | DRG 304 ==
LOC: J2C 04:21 → JICU 03-20 00:23 → J8W 03-21 13:51
PROVIDERS: ADMIT Orthopaedic Surgery Orthopaedic Surgery of the Spine; ATTEND Nurse Practitioner Family
PROC: 0SG1071 Fusion of 2 or more Lumbar Vertebral Joints with Autologous Tissue Substitute, Posterior Approach, Posterior Column, Open Approach (ICD-10-PCS; 2020-03-19)
PROC: 01NB0ZZ Release Lumbar Nerve, Open Approach (ICD-10-PCS; 2020-03-19)
PROC: 0SG30AJ Fusion of Lumbosacral Joint with Interbody Fusion Device, Posterior Approach, Anterior Column, Open Approach (ICD-10-PCS; 2020-03-19)
PROC: 0SG3071 Fusion of Lumbosacral Joint with Autologous Tissue Substitute, Posterior Approach, Posterior Column, Open Approach (ICD-10-PCS; 2020-03-19)
PROC: 0QS004Z Reposition Lumbar Vertebra with Internal Fixation Device, Open Approach (ICD-10-PCS; 2020-03-19)
PROC: 07DR3ZX Extraction of Iliac Bone Marrow, Percutaneous Approach, Diagnostic (ICD-10-PCS; 2020-03-19)
PROC: B01BZZZ Fluoroscopy of Spinal Cord (ICD-10-PCS; 2020-03-19)
PROC: 4A11X4G Monitoring of Peripheral Nervous Electrical Activity, Intraoperative, External Approach (ICD-10-PCS; 2020-03-19)
PROC: 0SG10AJ Fusion of 2 or more Lumbar Vertebral Joints with Interbody Fusion Device, Posterior Approach, Anterior Column, Open Approach (ICD-10-PCS; principal; 2020-03-19 11:30)
DX: M48.07 Spinal stenosis, lumbosacral region (principal); M40.209 Unspecified kyphosis, site unspecified; I95.9 Hypotension, unspecified; E78.5 Hyperlipidemia, unspecified; F41.9 Anxiety disorder, unspecified; F41.0 Panic disorder [episodic paroxysmal anxiety]; M54.16 Radiculopathy, lumbar region; J45.909 Unspecified asthma, uncomplicated
CPT/HCPCS: 36415; 71045-TC-FY; 72131-TC; 76000-TC-FY; 80048; 80053; 80061; 82962; 83036; 83721; 83735; 84100; 84443; 85025; 85027; 86850; 86900; 86901; 88304-TC; 94002; 94660; 94760; 97116-GP; 97162-GP; J0131; J1644